=== PATIENT | male | born 1960 | race African-American/Black ===

== ENCOUNTER 2017-05-12 04:27 | Emergency (ER) | payer OTHER ==
[2017-05-12 04:58] LABS: ADD MAN DIFF? NO
[2017-05-12 05:01] LABS: BASO % 1 % (0-3); EOS # 0.2 x10^3/uL (0.0-0.7); EOS % 4 % (0-3); HEMATOCRIT 49.2 % (39.0-53.0); HEMOGLOBIN 16.1 g/dL (13.0-17.5); LYMPH # 2.3 x10^3/uL (1.0-4.8); LYMPH % 37 % (24-48); MEAN CORPUSCULAR HEMOGLOBIN 30 pg (25-35); MEAN CORPUSCULAR HGB CONC 33 g/dL (31-37); MEAN CORPUSCULAR VOLUME 93 fL (79-100); MONO # 0.5 x10^3/uL (0.0-1.1); MONO % 8 % (0-9); NEUT # 3.1 x10^3uL (1.8-7.7); NEUT % 51 % (31-73); PLATELET COUNT 185 x10^3/uL (140-400); RED BLOOD COUNT 5.29 x10^6/uL (4.30-5.70); RED CELL DISTRIBUTION WIDTH 14.1 % (11.5-14.5); WHITE BLOOD COUNT 6.2 x10^3/uL (4.0-11.0)
[2017-05-12] MEDS: NITROGLYCERIN OINT 1 GM PACKET. TP (05:16)
[2017-05-12] MEDS: cloNIDine HCL 0.1 MG TABLET PO (05:17)
[2017-05-12 05:20] LABS: ANION GAP 12 (6-14); BLOOD UREA NITROGEN 16 mg/dL (8-26); BUN/CREATININE RATIO 18 (6-20); CALCIUM 8.4 mg/dL (8.5-10.1); CARBON DIOXIDE 25 mmol/L (21-32); CHLORIDE 102 mmol/L (98-107); CREATININE 0.9 mg/dL (0.7-1.3); GFR 87.3; GLUCOSE 130 mg/dL (70-99); POTASSIUM 3.8 mmol/L (3.5-5.1); SODIUM 139 mmol/L (136-145)
[2017-05-12 05:26] LABS: ALBUMIN 3.8 g/dL (3.4-5.0); ALK PHOS 74 U/L (46-116); ALT (SGPT) 49 U/L (16-63); AST (SGOT) 36 U/L (15-37); LIPASE 124 U/L (73-393); TOTAL BILIRUBIN 0.3 mg/dL (0.2-1.0); TOTAL PROTEIN 7.7 g/dL (6.4-8.2)
[2017-05-12 05:31] LABS: TROPONINI 0.028 ng/mL (0.000-0.055)
[2017-05-12 05:37] LABS: CKMB INDEX 1.1 % (0-4); CKMB MASS 2.5 ng/mL (0.0-3.6); CREATINE KINASE 227 U/L (39-308)
[2017-05-12 05:37] LABS: NT-PRO BNP 48 pg/mL (0-124)
[2017-05-12] MEDS ORDERED: CONTRAST GIVEN MC (05:45)
[2017-05-12] MEDS ORDERED: IOHEXOL 350 MG/ML 100 ML VIAL. IV (06:00)
[2017-05-12] MEDS: IOHEXOL 300 MG/ML 100ML VIAL. IV (06:10)
== END 2017-05-12 08:19 | disposition left against medical advice (07) ==
LOC: ER 04:27
DX: R07.89 Other chest pain (principal); I10 Essential (primary) hypertension; F17.210 Nicotine dependence, cigarettes, uncomplicated; F10.20 Alcohol dependence, uncomplicated; Z91.14 Patient's other noncompliance with medication regimen; Z79.899 Other long term (current) drug therapy
CPT/HCPCS: 36415; 71045; 71275; 74174; 80053; 82553; 83690; 83880; 84484; 85025; 93005; 99285-25; 99291-25; Q9967